=== PATIENT | male | born 1960 | race Two or more races ===

== ENCOUNTER → 2024-08-01 | Outpatient (CLI) | payer MEDICAID ==
[2024-08-01 11:30] LABS: Urine Bacteria None Seen /hpf (None Seen)
[2024-08-01 11:38] LABS: Basophils # (auto) 0 10 ^3/uL (0-0.2); Basophils % (auto) 0.3 % (0.0-2.0); Eosinophils # (auto) 0.1 10 ^3/uL (0-0.8); Eosinophils % (auto) 1.6 % (0.0-7.0); Hematocrit 44.7 % (41.0-53.0); Hemoglobin 15.5 g/dL (13.5-17.5); Lymphocytes # (auto) 1.6 10 ^3/uL (0.4-5.4); Lymphocytes % (auto) 26.5 % (10.0-50.0); Mean Corpuscular Hemoglobin 32.3 pg (28.0-32.0); Mean Corpuscular Hgb Conc. 34.6 g/dL (32.0-36.0); Mean Corpuscular Volume 93.5 fL (80.0-100.0); Monocytes # (auto) 0.7 10 ^3/uL (0-1.3); Monocytes % (auto) 10.8 % (0.0-12.0); Neutrophils # (auto) 3.8 10 ^3/uL (1.6-8.6); Neutrophils % (auto) 60.8 % (37.0-80.0); Nucleated Red Blood Cells % 0.1 %; Platelet Count (auto) 176 10^3/uL (140-450); Red Blood Cells 4.78 10^6/uL (4.5-5.90); Red Cell Distribution Width 14.8 % (11.8-14.3); White Blood Cell 6.2 10^3/uL (4.4-10.8)
[2024-08-01 11:53] LABS: Urine Blood Negative /uL (Negative); Urine Clarity Clear (Clear); Urine Color Light-Yellow (Yellow); Urine Protein, UAD Negative (Negative); Urine Specific Gravity 1.015 (1.001-1.035); Urine Urobilinogen 2 mg/dL (Negative); Urine WBC <1 /hpf (0 - 3)
[2024-08-01 12:08] LABS: Creatinine, Urine 95.37 mg/dL (30.0-125.0)
[2024-08-01 12:11] LABS: Micro Albumin < 3.0 mg/L (<30.0); Prostate Specific Antigen 0.79 ng/mL (0.0-4.0)
[2024-08-01 12:15] LABS: Free T4 (Free Thyroxine) 1.17 ng/dL (0.89-1.76)
[2024-08-01 12:16] LABS: Albumin 4.4 g/dL (3.2-4.8); Alkaline Phosphatase 83 U/L (46-116); Anion Gap 4 (5-15); Aspartate Aminotransferase 11 U/L (13-40); BUN/Creatinine Ratio 10.3 (10.0-20.0); Blood Urea Nitrogen 9 mg/dL (9-23); Calcium 9.6 mg/dL (8.7-10.4); Carbon Dioxide 30 mmol/L (20-30); Chloride 107 mmol/L (98-107); Cholesterol 139 mg/dL (< 200); Glucose 151 mg/dL (74-106); HDL Cholesterol 36 mg/dL (40-59); LDL Cholesterol 90 mg/dL (< 100); Sodium 141 mmol/L (136-145); Triglycerides 69 mg/dL (< 150)
[2024-08-01 12:17] LABS: Bilirubin, Total 1.2 mg/dL (0.2-1.0); Total Protein 7.1 g/dL (5.7-8.2)
[2024-08-01 12:24] LABS: Erythrocyte Sedimentation Rate 15 mm/hr (0-20)
[2024-08-01 12:41] LABS: Alanine Aminotransferase 21 U/L (7-40)
== END | disposition home or self-care (01) ==
LOC: LAB 10:48
PROVIDERS: ATTEND Internal Medicine
DX: I10 Essential (primary) hypertension (principal); G62.9 Polyneuropathy, unspecified; E11.9 Type 2 diabetes mellitus without complications
CPT/HCPCS: 36415; 80053; 80061; 81001; 82043; 82570; 84153; 84439; 84443; 85025; 85652

== ENCOUNTER 2025-08-03 15:31 | Outpatient (CLI) | payer MEDICAID ==
[2025-08-03 16:37] LABS: Alanine Aminotransferase 19 U/L (7-40); Albumin 4.5 g/dL (3.2-4.8); Alkaline Phosphatase 80 U/L (46-116); Anion Gap 8 (5-15); BUN/Creatinine Ratio 15.9 (10.0-20.0); Bilirubin, Direct 0.4 mg/dL (<0.3); Blood Urea Nitrogen 13 mg/dL (9-23); Calcium 9.2 mg/dL (8.7-10.4); Carbon Dioxide 29 mmol/L (20-31); Chloride 105 mmol/L (98-107); Cholesterol 151 mg/dL (< 200); Glucose 139 mg/dL (74-106); HDL Cholesterol 40 mg/dL (40-59); Potassium 4.6 mmol/L (3.5-5.1); Prostate Specific Antigen 0.81 ng/mL (0.0-4.0); Sodium 142 mmol/L (136-145); Total Protein 7.4 g/dL (5.7-8.2); Triglycerides 58 mg/dL (< 150)
[2025-08-03 16:38] LABS: Bilirubin, Total 1.1 mg/dL (0.2-1.0)
[2025-08-03 16:40] LABS: Free T4 (Free Thyroxine) 1.2 ng/dL (0.89-1.76)
[2025-08-03 16:41] LABS: Ferritin 140.7 ng/mL (22-322)
[2025-08-03 16:45] LABS: Hematocrit 43.9 % (41.0-53.0); Hemoglobin 14.8 g/dL (13.5-17.5); Mean Corpuscular Hemoglobin 30.9 pg (28.0-32.0); Mean Corpuscular Volume 91.5 fL (80.0-100.0); Nucleated Red Blood Cells % 0.0 %
[2025-08-03 16:54] LABS: Urine Protein, UAD Negative (Negative)
[2025-08-03 17:02] LABS: Microalb/Creat Ratio, Urine < 3.0
== END 2025-08-03 17:00 | disposition home or self-care (01) ==
LOC: LAB 15:31
PROVIDERS: ATTEND Internal Medicine Gastroenterology
DX: R94.5 Abnormal results of liver function studies (principal); K63.5 Polyp of colon
CPT/HCPCS: 36415; 80053; 80061; 80076; 81001; 82043; 82570; 82607; 82728; 83036; 84153; 84439; 84443; 85025; 85652